=== PATIENT | male | born 1965 | race Caucasian/White ===

== ENCOUNTER 2020-07-28 10:07 | Emergency (ER) | payer MEDICAID ==
[~2020-07-28] VITALS: Ht 188 cm; Wt 76.3 kg
[2020-07-28 10:24] VITALS: BP 126/72
[2020-07-28] MEDS: ketorolac tromethamine 15mg/ml inj. IM ONE ×2 (12:20→13:23)
[2020-07-28] MEDS ORDERED: HYDROcodone/acetaminophen 5mg/325mg tablet PO ONE (12:20)
[2020-07-28] MEDS ORDERED: ondansetron 4mg rapidly disintigrating tab PO ONE (12:20)
[2020-07-28] MEDS ORDERED: IBUP-1984 PO (13:26)
[2020-07-28] MEDS ORDERED: CYCL-1 PO (13:26)
== END 2020-07-28 13:49 | disposition home or self-care (01) ==
LOC: ER 10:07
DX: S39.012A Strain of muscle, fascia and tendon of lower back, initial encounter (principal); Z79.899 Other long term (current) drug therapy; Z98.890 Other specified postprocedural states; W19.XXXA Unspecified fall, initial encounter; Y93.89 Activity, other specified; Y92.89 Other specified places as the place of occurrence of the external cause; Y99.8 Other external cause status
CPT/HCPCS: 72100; 99283; J1885